=== PATIENT | male | born 1990 | race African-American/Black ===

== ENCOUNTER 2019-05-09 02:09 | Emergency (ER) | payer SELFPAY ==
[~2019-05-09] VITALS: Ht 182.9 cm; Wt 90.7 kg
--- NOTE | 2019-05-09 02:29 | NUR ---
BIB EMS, FOUND PASSED OUT ON BATHROOM FLOOR, PATIENT IS RESPONSIVE TO PAINFUL STIMULI, RESPIRATIONS ARE EVEN AND UNLABORED. SATURATION 100% ON RA.
[2019-05-09] MEDS ORDERED: IV NORMAL SALINE 1000 ML BAG IV ONE (02:30)
--- NOTE | 2019-05-09 02:43 | NUR ---
ATTEMPTED TO PLACE F/C, PATIENT GRABBED PENIS AND THEN CURLED INTO POSITION. DR. WEISS AWARE, UNABLE TO CATH AT THIS TIME.
[2019-05-09 03:00] LABS: BASOPHILS % (AUTO) 0.1 % (0.0-2.0); EOSINOPHILS % (AUTO) 0.1 % (0.0-7.0); HEMATOCRIT 46.7 % (36.7-47.1); HEMOGLOBIN 15.1 g/dL (12.5-16.3); LYMPHOCYTES # (AUTO) 1.6 K/uL (20.0-40.0); LYMPHOCYTES % (AUTO) 16.7 % (20.5-51.5); MEAN CORPUSCULAR HEMOGLOBIN 24.3 uug (23.8-33.4); MEAN CORPUSCULAR HGB CONC 32 g/dL (32.5-36.3); MEAN CORPUSCULAR VOLUME 75.3 fL (73.0-96.2); MONOCYTES # (AUTO) 0.9 K/uL (2.0-10.0); NEUTROPHILS # (AUTO) 7.2 K/uL (1.8-8.9); NEUTROPHILS % (AUTO) 74.1 % (38.5-71.5); PLATELET COUNT (AUTO) 213 K/uL (152-348); WHITE BLOOD COUNT (AUTO) 9.8 K/uL (3.6-10.2)
--- NOTE | 2019-05-09 03:10 | NUR ---
PATIENT REMAINS IN POSITION AT THIS TIME, NOT RESPONDING TO VERBAL STIMULI. RESPONDS TO VERBAL STIMULI ONLY.
[2019-05-09 03:27] LABS: ETHANOL < 3 MG/DL (0-0)
[2019-05-09 03:38] LABS: CARBON DIOXIDE 22 mmol/L (21-32); CHLORIDE 100 mmol/L (98-107); CREATININE 1.5 mg/dL (0.6-1.3); GLUCOSE 163 mg/dL (74-106); POTASSIUM 3.4 mmol/L (3.5-5.1); UREA NITROGEN, BLOOD 15 mg/dL (7-18)
--- NOTE | 2019-05-09 03:50 | NUR ---
RETURNED FROM BREAK, PATIENT IS AGITATED AND AGGRESIVE IN BED. HE IS KICKING AND ATTEMPTING TO STRIKE STAFF, GERRY GUZMÁN WAS CALLED. PATIENT WAS PLACED IN RESTRAINTS AFTER LESS INVASIVE/RESTRICTING INTERVENTIONS WERE NOT EFFECTIVE.
[2019-05-09 03:51] LABS: ALANINE AMINOTRANSFERASE 33 U/L (16-63); ALKALINE PHOSPHATASE 80 U/L (50-136); ASPARTATE AMINOTRANSFERASE 47 U/L (15-37); BILIRUBIN,DIRECT 0.2 mg/dL (0.0-0.2); BILIRUBIN,TOTAL 0.8 mg/dL (0.2-1.0); CREATINE KINASE, TOTAL 1547 U/L (39-308); TOTAL PROTEIN, SERUM 9.7 g/dL (6.4-8.2)
[2019-05-09 03:57] LABS: ACETAMINOPHEN < 2.0 ug/mL (10-30)
[2019-05-09 03:59] LABS: THYROID STIMULATING HORMONE 5.514 mIU/mL (0.358-3.740)
--- NOTE | 2019-05-09 04:00 | NUR ---
WHILE ATTEMPTING TO PLACE RESTRAINTS, PATIENT GOT HOLD OF RESTRAINT BEAVER CHAIN, SWINGING TOWARDS STAFF, ABLE TO REMOVE BEAVER CHAIN FROM PATIENT AND PLACE PATIENT ON RESTRAINTS. PATIENT STILL NON-VERBAL AT THIS TIME, ATTEMPTED TO PLACE F/C, PATIENT STATED " DON'T PUT THAT CATHETER IN ME." DR. WEISS CALLED TO BEDSIDE TO INTERVIEW PATIENT.
--- NOTE | 2019-05-09 04:00 | NUR ---
PT WAS SEEN NONCOMPLIANT, UNCOOPERATIVE AND ON A POSITION, TRYING TO GET OUT OF THE GURNEY DURING CODE ISAAC [id number] UP BED AT LOWEST POSITION WITH 2RNs AT BEDSIDE ER STAFF INITIATED VELCRO RESTRAINTS WHEN ALL NONINVASIVE INTERVENTIONS FAILED TO REDIRECT PT. DURING ATTEMPT TO APPLY RESTRAINTS, PT GRABBED KEYS WITH POLE AND ATTEMPTED TO SWING TOWARDS STAFF. PT CONTINUED NOT TO TALK AND REMAIN NONCOMPLIANT. EVENTUALLY SECURITY AND ER STAFF WAS ABLE TO APPLY 4PT RESTRAINTS. KEPT SAFE, MAINTAINED PRIVACY REASSESSED AND MONITORED ACCORDINGLY PT VERBALIZED: "I WILL ONLY TALK TO THE SERVICE MECHANIC OR DOCTOR. NO ONE ELSE" ERMD AND SERVICE MECHANIC AWARE
--- NOTE | 2019-05-09 04:12 | NUR ---
F/C placement was attempted on this patient. Patient woke up during the process and became resistant and agressive. ER MD was at bedside. Patient is now able to make needs known, he states " I do not want that catheter, keep it away from me. Keep the nurse with the catheter away from me". ER MD explained to the patient the he was unresponsive, altered, and had abnormal labs. The F/c was indicated since the patient was not responding. ER MD has decided the patient is safe to urinate into a urinal at this time. Will continue to monitor patient was ER MD remains in the room
--- NOTE | 2019-05-09 04:20 | NUR ---
PATIENT IS AWAKE AND ALERT AT THIS TIME, RESTRAINTS HAVE BEEN REMOVED BY DR. WEISS. PATIENT REQUESTING TO SPEAK WITH NURSING THERAPEUTIC ACTIVITIES SERVICES WORKER.
--- NOTE | 2019-05-09 04:30 | NUR ---
PATIENT IS REQUESTING TO LEAVE AMA. DR. WEISS IN ROOM EXPLAINING RISKS OF LEAVING AMA, PATIENT STILL WANTS TO LEAVE AMA. AMA FORMED SIGNED BY PATIENT. CLOTHING PROVIDED TO PATIENT. PATIENT IS ALERT AND ORIENTED, AMBULATING WITH STEADY GAIT.
--- NOTE | 2019-05-09 04:38 | NUR ---
PATIENT ABLE TO STATE NAME AND .
--- NOTE | 2019-05-09 04:43 | NUR ---
Patient does not wish to proceed with medical care recommended by Dr. WEISS. Patient given information related to possible complications, up to and including , which could occur as a result of leaving the hospital at this time. Patient verbalizes understanding of risks involved due to leaving against medical advice. Patient has signed AMA form.
--- NOTE | 2019-05-10 10:14 | NUR ---
LATE ENTRY: 05/09/19 NS 1000ML IV BOLUS GIVEN VIA 20GA LAC START TIME: 229 COMPLETED: 329
== END 2019-05-09 04:50 | disposition left against medical advice (07) ==
LOC: ER 02:14 → EDBD 02:14 → ER 04:50
DX: R41.82 Altered mental status, unspecified (principal); E87.2 Acidosis; N28.9 Disorder of kidney and ureter, unspecified; M62.82 Rhabdomyolysis
CPT/HCPCS: 36415; 80048; 80076; 82140; 82550; 83605; 84443; 84484; 85025; 85730; 93005; 96360; 99284; G0480 ×2; G0481; 70030-TC; A4663; J7030